=== PATIENT | male | born 1995 | race Caucasian/White ===

== ENCOUNTER 2019-05-18 09:54 | Emergency (ER) | payer OTHER ==
[2019-05-18 10:31] VITALS: BP 115/82
--- NOTE | 2019-05-18 10:45 | UC ---
Abdominal Pain Male HPI - HPI Summary HPI Summary: Pt present with c/o sudden onset of LLQ pain, chills, diaphoresis that began on 05/13/19 and has ot improved or worsened. Pt denies, vomiting, diarrhea, constipation, black tarry stools, BRBPR, urinary symptoms of frequency, urgency , dysuria, HX of kidney stone,s diverticulitis, IBS or Crohns. Pt states that he has been nauseous but not vomited. Has difficulty sleeping due to pain. Martin worsened today and states that he woke last night with, chills, sweating and worsening abdominal pain. pain radiates from left CVA to LLQ. Pt states pain is reproducible. - History of Current Complaint Chief Complaint: UCGI Stated Complaint: NAUSEA LOWER LEFT STOMACH Time Seen by Provider: 05/18/19 10:25 Hx Obtained From: Patient Onset/Duration: Sudden Onset, Lasting Days, Still Present Timing: Constant Severity Initially: Mild Severity Currently: Moderate Pain Intensity: 6 Location: Discrete At: LLQ Radiates: Yes Radiates to: Flank, LLQ Character: Aching, Burning, Dull, Sharp Aggravating Factor(s): Movement Alleviating Factor(s): Nothing Associated Signs And Symptoms: Positive: Fever, Back Pain, Decreased Appetite - Risk Factors Testicular Torsion: Negative Cardiac Risk Factors: Negative - Allergies/Home Medications Allergies/Adverse Reactions: Allergies Allergy/AdvReac Type Severity Reaction Status Date / Time No Known Allergies Allergy Verified 05/18/19 10:27 Home Medications: Home Medications NK [No Home Medications Reported] 05/18/19 [History Confirmed 05/18/19] PMH/Surg Hx/FS Hx/Imm Hx Previously Healthy: Yes - Surgical History Surgical History: None - Family History Known Family History: Positive: Cardiac Disease - Social History Occupation: Student Lives: Alone Alcohol Use: None Substance Use Type: None Smoking Status (MU): Never Smoked Tobacco Have You Smoked in the Last Year: No - Immunization History Vaccination Up to Date: Yes Review of Systems All Other Systems Reviewed And Are Negative: Yes Constitutional: Positive: Fever, Chills Skin: Positive: Negative Eyes: Positive: Negative ENT: Positive: Negative Respiratory: Positive: Negative Cardiovascular: Positive: Negative Gastrointestinal: Positive: Abdominal Pain, Nausea Genitourinary: Positive: Negative Motor: Positive: Negative Neurovascular: Positive: Negative Musculoskeletal: Positive: Negative Neurological: Positive: Negative Psychological: Positive: Negative Is Patient Immunocompromised?: No Physical Exam Triage Information Reviewed: Yes Appearance: Pain Distress Vital Signs: Initial Vital Signs Temp 98.9 F 05/18/19 10:27 Pulse 88 05/18/19 10:27 Resp 16 05/18/19 10:27 BP 115/82 05/18/19 10:27 Pulse Ox 100 05/18/19 10:27 Vital Signs Reviewed: Yes Eye Exam: Normal ENT Exam: Normal Dental Exam: Normal Neck exam: Normal Respiratory Exam: Normal Cardiovascular Exam: Normal Abdomen Description: Positive: CVA Tenderness (L), Other: - LLQ tenderness Bowel Sounds: Positive: Present Musculoskeletal Exam: Normal Neurological Exam: Normal Psychological Exam: Normal Skin Exam: Normal Abd Pain Male Course/Dx - Course Course Of Treatment: I discussed with the pt my findings on PE, urinalysis and recommended that pt have further testing and evaluation at closest emergency room. Pt verbalized understanding and agreed to plan of care. - Differential Dx/Clinical Impression Differential Diagnosis/HQI/PQRI: Diverticulitis, Urinary Tract Infection Provider Diagnosis: Abdominal pain in male Discharge - Sign-Out/Discharge Documenting (check all that apply): Patient Departure All imaging exams completed and their final reports reviewed: No Studies - Discharge Plan Condition: Stable Disposition: HOME-RECOMMEND TO ED Patient Education Materials: Hematuria (ED), Acute Abdominal Pain (ED) Referrals: Gisel Asher NP [Primary Care Provider] - If Needed Additional Instructions: Please go directly to the closest emergency room. - Billing Disposition and Condition Condition: STABLE Disposition: Home-Recommend to ED
--- NOTE | 2019-05-21 06:48 | UC ---
- Progress Note Progress Note: This patient was sent to the ER Please contact patient and make sure he is on the appropriate antibiotic Course/Dx - Diagnoses Provider Diagnoses: Abdominal pain in male Discharge ED - Sign-Out/Discharge Documenting (check all that apply): Post-Discharge Follow Up All imaging exams completed and their final reports reviewed: No Studies - Discharge Plan Condition: Stable Disposition: HOME-RECOMMEND TO ED Patient Education Materials: Hematuria (ED), Acute Abdominal Pain (ED) Referrals: Gisel Asher NP [Primary Care Provider] - If Needed Additional Instructions: Please go directly to the closest emergency room. - Billing Disposition and Condition Condition: STABLE Disposition: Home-Recommend to ED
== END 2019-05-18 10:54 | disposition home health service (06) ==
LOC: UCCORT 09:54
DX: R10.32 Left lower quadrant pain (principal)
CPT/HCPCS: 81003; 87077; 87086; 87186; 99212; G0463

== ENCOUNTER 2023-06-18 05:41 | Observation (INO) ==
[~2023-06-18 05:41] MED LIST: Buffered Lidocaine 1% SYRIN 1 ml INTRADERM ONE; HYDROcodone/ACETAMIN 5/325 mg TAB PO PRN; Lactated Ringers 1000 ml BAG 1,000 ML IV SCH; Metoclopramide 5 MG/ML VIAL (10 mg) IV PRN; Naloxone 0.4 mg VIAL 0.4 mg/ml 1 ml VIAL IV PRN; Ondansetron 4 mg VIAL 2 MG/ML 2 ml VIAL IV PRN; fentaNYL 100 mcg/2 ml 50 MCG/ML VIAL IV PRN
[2023-06-18] MEDS ORDERED: ceFAZolin 2 GM in NS PREMIX 2 GM/100 ML BAG IVPB ONE (05:58)
[2023-06-18] MEDS ORDERED: Chlorhexidine MOUTHWASH 0.12% 15 ML UDC ONE (05:58)
[2023-06-18] MEDS ORDERED: Lidocaine 1% w EPI 1:200,000 SDV 30 ML VIAL ONE (06:47)
[2023-06-18] MEDS ORDERED: ceFAZolin VIAL VIAL ONE (06:48)
[2023-06-18] MEDS ORDERED: Thrombin 5,000 UNITS 1 APPLIC KIT - topical use - TOPICAL ONE (06:48)
[2023-06-18] MEDS ORDERED: Gelfoam Sponge SIZE 100 SPONGE ONE (06:50)
[2023-06-18] MEDS ORDERED: Dexamethasone IV 4 MG/ML VIAL 1 ml VIAL ONE (07:07)
[2023-06-18] MEDS ORDERED: Midazolam 2 mg/2 ml VIAL 1 mg/ml 2 ml VIAL (2 mg) ONE (07:07)
[2023-06-18] MEDS ORDERED: Ondansetron 4 mg VIAL 2 MG/ML 2 ml VIAL ONE (07:07)
[2023-06-18] MEDS ORDERED: Lidocaine 2% PF 5 ML VIAL ONE (07:07)
[2023-06-18] MEDS ORDERED: fentaNYL 250 mcg/5 ml 50 MCG/ML 5 ml VIAL (250 MCG) ONE (07:07)
[2023-06-18] MEDS ORDERED: Propofol 10 MG/ML 20 ML BTL ONE (07:07)
[2023-06-18] MEDS ORDERED: Rocuronium 50 mg VIAL 10 mg/ml 5 ml VIAL (50 mg) ONE (07:07)
[2023-06-18] MEDS ORDERED: Acetaminophen IV 1 GM/100ML 1,000 MG/100 ML BAG IV ONE (08:25)
[2023-06-18] MEDS ORDERED: Calcium Carb (TUMS) 500 mg CHEW TAB PO PRN (09:15)
[2023-06-18] MEDS ORDERED: Senna TAB 8.6 mg TAB PO PRN (09:15)
[2023-06-18] MEDS ORDERED: Ondansetron 4 mg VIAL 2 MG/ML 2 ml VIAL IV PRN (09:15)
[2023-06-18] MEDS ORDERED: Morphine 2 MG/ML SYRINGE IV PRN (09:15)
[2023-06-18] MEDS ORDERED: HYDROcodone/ACETAMIN 5/325 mg TAB PO PRN ×2 (09:15)
[2023-06-18 09:55] LABS: Rapid COVID-19 Molecular Undetected (Undetected)
[2023-06-18] MEDS ORDERED: Lactated Ringers 1000 ml BAG 1,000 ML IV SCH (10:00)
[2023-06-18 14:36] VITALS: BP 128/76
== END 2023-06-18 14:45 | disposition home or self-care (01) ==
LOC: SSU 05:41 → OR 05:41
PROVIDERS: ADMIT Physician Assistant; ATTEND Neurological Surgery